=== PATIENT | female | born 1950 | race Caucasian/White ===

== ENCOUNTER 2017-05-27 12:03 | Emergency (ER) | payer MEDICARE, SELFPAY ==
[~2017-05-27] VITALS: Ht 167.6 cm; Wt 141.1 kg
[~2017-05-27 12:03] MED LIST: ALBU90OI INH; CHOL10002; CHOL10002 PO; COMPOUND THYROID; CYCL10 PO; Digestive Enzy1 EACH PO; IBUP400 PO; IBUP800; LISI5 PO; Percocet 5-3251 EACH PO; T3/T4 PO; TRAM50 PO; [UNRECOGNIZED DRUG - OTHER] PO
[2017-05-27 12:38] LABS: BASOPHILS ABSOLUTE AUTO 0.06 K/mm3 (0.00-0.23); BASOPHILS PERCENT AUTO 0 % (0-2); EOSINOPHILS ABSOLUTE AUTO 0.17 K/mm3 (0.00-0.68); EOSINOPHILS PERCENT AUTO 1 % (0-6); Hematocrit 43.6 % (33.0-51.0); IMMATURE GRAN ABSOLUTE AUTO 0.07 K/mm3 (0.00-0.10); IMMATURE GRAN PERCENT AUTO 1 % (0-1); LYMPHOCYTES ABSOLUTE AUTO 1.75 K/mm3 (0.84-5.20); LYMPHOCYTES PERCENT AUTO 11 % (21-46); MONOCYTES PERCENT AUTO 5 % (4-13); Mean Corpuscular HGB 27.8 pg (26.0-34.0); Mean Corpuscular HGB Conc 32.1 g/dL (31.5-36.5); Mean Corpuscular Volume 87 fL (80-100); Mean Platelet Volume 10.1 fL (9.1-12.4); NEUTROPHILS ABSOLUTE AUTO 12.59 K/mm3 (1.96-9.15); NEUTROPHILS PERCENT AUTO 82 % (41-73); Platelet Count 281 K/mm3 (150-400); RDW Standard Deviation 53.7 fL (35.1-46.3); Red Blood Cell Count 5.04 M/mm3 (3.80-5.20); White Blood Cell Count 15.34 K/mm3 (4.00-11.30)
[2017-05-27 12:53] LABS: Alanine Aminotransfer (ALT/SGP 31 U/L (12-78); Albumin, Blood 3.5 g/dL (3.4-5.0); Albumin/Globulin Ratio 0.8 (0.8-1.8); Alk Phos 102 U/L (50-136); Anion Gap 8 mmol/L (6-16); Aspartate Aminotrans (AST/SGOT 22 U/L (12-37); Bilirubin, Total 0.5 mg/dL (0.1-1.0); Blood Urea Nitrogen 12 mg/dL (8-24); Bun/Creatinine Ratio 19.2 (12.0-20.0); CO2, Blood 25 mmol/L (21-32); Calcium, Blood 8.8 mg/dL (8.5-10.1); Chloride, Blood 105 mmol/L (98-108); Creatinine, Blood 0.63 mg/dL (0.40-1.00); Globulin, Blood 4.4 g/dL (2.2-4.0); Glomerular Filtration Rate >60 (60-); Glucose, Blood 103 mg/dL (70-99); Potassium, Blood 4.3 mmol/L (3.5-5.5); Sodium, Blood 138 mmol/L (136-145); Total Protein, Blood 7.9 g/dL (6.4-8.2); Troponin I <0.015 ng/mL (0.000-0.040)
[2017-05-27 13:31] LABS: Source, Urine Clean Catch
[2017-05-27 13:37] LABS: Bilirubin, Urine Neg (Neg); Blood, Urine Neg (Neg); Glucose Qualitative, Urine Neg (Neg); Ketones, Urine Neg (Neg); Leukocyte Esterase, Urine Neg (Neg); Nitrite, Urine Neg (Neg); Protein, Urine Neg (Neg); Specific Gravity, Urine 1.015 (1.003-1.022); Urobilinogen, Urine NORM (Normal)
[2017-05-27 13:44] LABS: Appearance, Urine Clear (Clear); Color, Urine Pale Yellow (P-Yellow)
== END 2017-05-27 14:20 | disposition home or self-care (01) ==
LOC: ER 12:03
PROVIDERS: Emergency Medicine
DX: R07.9 Chest pain, unspecified (principal); Z88.2 Allergy status to sulfonamides; Z88.5 Allergy status to narcotic agent; Z79.899 Other long term (current) drug therapy
CPT/HCPCS: 36415; 71046; 80053; 81003; 83690; 83880; 84484; 85025; 93005; 93010; 99283

== ENCOUNTER 2019-04-28 10:27 | Day surgery (SDC) | payer MEDICARE, SELFPAY ==
[~2019-04-28] VITALS: Ht 165.1 cm; Wt 148.0 kg
[~2019-04-28 10:27] MED LIST changes: +SYNTHROID150 MCG PO
--- NOTE | 2019-04-28 11:20 | NUR ---
History, Chart, Medications and Allergies reviewed before start of procedure. Patient confirms NPO status and agrees with scheduled surgery. Reports taking all of the prescribed colon prep with clear results. Patient States Post-Procedure ride home has been arranged with her friend, [place].
--- NOTE | 2019-04-28 11:54 | NUR ---
Ambulatory in Day Surgery. Patient states colon prep results clear. History, Chart, Medications and Allergies reviewed before start of procedure. Lungs clear T/O to Auscultation. Patient confirms NPO status and agrees with scheduled surgery. Pre-Op teaching done. Pt verbalizes understanding. Patient States Post-Procedure ride home has been arranged.
--- NOTE | 2019-04-28 15:14 | NUR ---
04/28/19 1514 Brianna Chase History, Chart, Medications and Allergies reviewed before start of procedure.MAC CASE WITH DR. MILLER.
--- NOTE | 2019-04-28 16:20 | NUR ---
Discharge instructions reviewed with patient. Patient verbalizes understanding. Copy given to patient to take home. Discharged via wheelchair to private car for ride home.PATIENT AND RIDE HOME DENY ANY QUESTIONS OR CONCERNS
== END 2019-04-28 22:52 | disposition home or self-care (01) ==
LOC: ORSCMMR 10:27 → ORD 12:00 → ORSCMMR 22:52
PROVIDERS: Surgery
PROC: 0DBP8ZX Excision of Rectum, Via Natural or Artificial Opening Endoscopic, Diagnostic (ICD-10-PCS; principal; 2019-04-28 12:00)
DX: Z85.038 Personal history of other malignant neoplasm of large intestine (principal); K62.1 Rectal polyp; K57.30 Diverticulosis of large intestine without perforation or abscess without bleeding; E03.9 Hypothyroidism, unspecified; E78.5 Hyperlipidemia, unspecified; J45.909 Unspecified asthma, uncomplicated; E66.01 Morbid (severe) obesity due to excess calories; Z68.43 Body mass index [BMI] 50.0-59.9, adult; G47.33 Obstructive sleep apnea (adult) (pediatric); I10 Essential (primary) hypertension; Z79.899 Other long term (current) drug therapy
CPT/HCPCS: 88305; J2704; J7120

== ENCOUNTER 2019-05-02 08:21 | Day surgery (SDC) | payer MEDICARE, SELFPAY | END 2019-05-02 23:25 | disposition home or self-care (01) | LOC: MOI US 08:21 | DX: C79.81 Secondary malignant neoplasm of breast (principal); C18.7 Malignant neoplasm of sigmoid colon; Z17.0 Estrogen receptor positive status [ER+] | CPT/HCPCS: 19083; 19084; 77065; 88305; 88341; 88342; 88360; A4648 ==

== ENCOUNTER 2019-05-14 08:18 | Day surgery (SDC) | payer MEDICARE, SELFPAY | END 2019-05-14 22:46 | disposition home or self-care (01) | LOC: MOI MAM 08:18 → MOI US 09:00 → MOI MAM 22:46 → MOI US 05-19 09:00 | DX: C50.412 Malignant neoplasm of upper-outer quadrant of left female breast (principal) | CPT/HCPCS: 19281; 19282 ==

== ENCOUNTER 2021-11-14 08:13 | Day surgery (SDC) | payer MEDICARE | END 2021-11-18 23:36 | disposition home or self-care (01) | LOC: MOI US 08:13 | DX: C50.412 Malignant neoplasm of upper-outer quadrant of left female breast (principal); Z17.0 Estrogen receptor positive status [ER+] | CPT/HCPCS: 19083; 77065; 88305; 88360; A4648; G0279 ==

== ENCOUNTER 2022-02-13 07:17 | Day surgery (SDC) | payer MEDICARE ==
[~2022-02-13] VITALS: Ht 167.6 cm; Wt 142.0 kg
[~2022-02-13 07:17] MED LIST changes: +METF500 PO
--- NOTE | 2022-02-13 09:06 | NUR ---
Ambulatory in Day Surgery. History, Chart, Medications and Allergies reviewed before start of procedure.Patient confirms NPO status and agrees with scheduled surgery. Pre-Op teaching done. Pt verbalizes understanding. Patient States Post-Procedure ride home has been arranged.
--- NOTE | 2022-02-13 10:06 | NUR ---
02/13/22 Sheeba6 Rusty Calhoun ADDITIONAL 1 G ANCEF GIVEN BY GRABIEL.HEYDI AT 0931 IN ADJUNCT TO 2G OF ANCEF FOR A TOTAL OF 3G OF ANCEF. TX.CS1 UTILIZED SILK TAPE TO POSITION BILATERAL BREASTS OUT OF SURGICAL SITE.
== END 2022-02-13 23:21 | disposition home or self-care (01) ==
LOC: ORSCMMR 07:17 → ORD 08:45 → ORSCMMR 08:45
PROVIDERS: Surgery
PROC: 05HM33Z Insertion of Infusion Device into Right Internal Jugular Vein, Percutaneous Approach (ICD-10-PCS; principal; 2022-02-13 08:45)
DX: C78.7 Secondary malignant neoplasm of liver and intrahepatic bile duct (principal); E78.5 Hyperlipidemia, unspecified; E03.9 Hypothyroidism, unspecified; E11.9 Type 2 diabetes mellitus without complications; G47.33 Obstructive sleep apnea (adult) (pediatric); E66.01 Morbid (severe) obesity due to excess calories; Z68.43 Body mass index [BMI] 50.0-59.9, adult; Z79.84 Long term (current) use of oral hypoglycemic drugs; Z79.899 Other long term (current) drug therapy
CPT/HCPCS: 77001; 82947; 93005; 93010; A9270; C1788; J0690; J1100; J1642; J2250; J2405; J2704; J2765; J2795; J3010; J7120

== ENCOUNTER 2023-02-12 07:30 | Day surgery (SDC) | payer BC, OTHER ==
[2023-02-12] VITALS (18 sets, daily range): BP systolic 120–178; BP diastolic 84–108
[~2023-02-12] VITALS: Ht 165 cm; Wt 128.2 kg
--- NOTE | 2023-02-12 08:48 | NUR ---
Ambulatory in Day Surgery. History, Chart, Medications and Allergies reviewed before start of procedure. Patient confirms NPO status and agrees with scheduled surgery. Surgical site prepped with 2% Chlorhexidine cloth wipe. Patient reports completing Chlorhexadine shower X2 prior to admission to hospital. Pre-Op teaching done. Pt verbalizes understanding. Patient States Post-Procedure ride home has been arranged.
--- NOTE | 2023-02-12 15:26 | NUR ---
DISCHARGE: Patient up to Ambulate independently. Gait steady. Discharge instructions reviewed with patient. Patient verbalizes understanding. Copy given to patient to take home. Patient States Post-Procedure ride home has been arranged. Discharged via wheelchair to private car for ride home. PT SURGICAL SITES WNL. BREAST BINDER IN PLACE. GAUZE PLACED TO BREAST TO PREVENT SURGICAL SITE FROM STICKING TO BREAST BINDER. PT REPORTS NAUSEA AND PAIN BETTER AND REPORTS SHE IS READY TO GO HOME NOW. PT REPORTS FEELING MUCH BETTER AFTER BEING ABLE TO SLEEP FOR A LITTLE BIT. PT GIVEN GLASSES.
== END 2023-02-12 15:26 | disposition home or self-care (01) ==
LOC: ORSCMMR 07:30 → ORD 09:00 → ORSCMMR 09:00
PROVIDERS: Surgery
PROC: 0HBU0ZZ Excision of Left Breast, Open Approach (ICD-10-PCS; principal; 2023-02-12 09:00)
PROC: 07B60ZX Excision of Left Axillary Lymphatic, Open Approach, Diagnostic (ICD-10-PCS; principal; 2023-02-12 09:00)
PROC: 0JPT0WZ Removal of Totally Implantable Vascular Access Device from Trunk Subcutaneous Tissue and Fascia, Open Approach (ICD-10-PCS; principal; 2023-02-12 09:00)
DX: C50.912 Malignant neoplasm of unspecified site of left female breast (principal); Z17.0 Estrogen receptor positive status [ER+]; E11.9 Type 2 diabetes mellitus without complications; E03.9 Hypothyroidism, unspecified; G47.33 Obstructive sleep apnea (adult) (pediatric); J45.909 Unspecified asthma, uncomplicated; Z79.84 Long term (current) use of oral hypoglycemic drugs; E66.01 Morbid (severe) obesity due to excess calories; Z68.42 Body mass index [BMI] 45.0-49.9, adult; Z85.038 Personal history of other malignant neoplasm of large intestine; Z85.05 Personal history of malignant neoplasm of liver; C77.3 Secondary and unspecified malignant neoplasm of axilla and upper limb lymph nodes
CPT/HCPCS: 82947; 88307; 88360; A9270; J0690; J1100; J1885; J2250; J2405; J2704; J2765; J3010; J7120; Q9968

== ENCOUNTER 2023-04-28 23:45 | Emergency (ER) | payer BC, OTHER ==
[~2023-04-28] VITALS: Ht 165.1 cm; Wt 131.5 kg
[2023-04-29 00:28] LABS: BASOPHILS ABSOLUTE AUTO 0.06 K/mm3 (0.00-0.23); BASOPHILS PERCENT AUTO 0 % (0-2); EOSINOPHILS ABSOLUTE AUTO 0.01 K/mm3 (0.00-0.68); EOSINOPHILS PERCENT AUTO 0 % (0-6); IMMATURE GRAN ABSOLUTE AUTO 0.09 K/mm3 (0.00-0.10); IMMATURE GRAN PERCENT AUTO 1 % (0-1); LYMPHOCYTES ABSOLUTE AUTO 1.97 K/mm3 (0.84-5.20); LYMPHOCYTES PERCENT AUTO 11 % (21-46); MONOCYTES ABSOLUTE AUTO 0.63 K/mm3 (0.16-1.47); MONOCYTES PERCENT AUTO 4 % (4-13); Mean Corpuscular HGB 30.1 pg (26.0-34.0); Mean Corpuscular Volume 88 fL (80-100); Mean Platelet Volume 9.3 fL (9.1-12.4); NEUTROPHILS ABSOLUTE AUTO 15.23 K/mm3 (1.96-9.15); NEUTROPHILS PERCENT AUTO 85 % (41-73); Platelet Count 307 K/mm3 (150-400); RDW Coefficient Variation 14.6 % (11.7-14.2); RDW Standard Deviation 46.7 fL (35.1-46.3); Red Blood Cell Count 5.32 M/mm3 (3.80-5.20); White Blood Cell Count 17.99 K/mm3 (4.00-11.30)
[2023-04-29 01:04] LABS: Albumin, Blood 4.1 g/dL (3.4-5.0); Albumin/Globulin Ratio 0.9 (0.8-1.8); Bilirubin, Total 0.7 mg/dL (0.1-1.0); Bun/Creatinine Ratio 24.7 (12.0-20.0); Calcium, Blood 9.9 mg/dL (8.5-10.1); Creatinine, Blood 0.77 mg/dL (0.40-1.00); Globulin, Blood 4.5 g/dL (2.2-4.0); Potassium, Blood 4.6 mmol/L (3.5-5.5); Total Protein, Blood 8.6 g/dL (6.4-8.2)
[2023-04-29 07:45] VITALS: BP 143/87
== END 2023-04-29 08:34 | disposition home or self-care (01) ==
LOC: ER 23:45
PROVIDERS: Emergency Medicine
DX: K43.6 Other and unspecified ventral hernia with obstruction, without gangrene (principal); Z88.2 Allergy status to sulfonamides; Z88.5 Allergy status to narcotic agent; Z79.899 Other long term (current) drug therapy; M19.90 Unspecified osteoarthritis, unspecified site; E03.9 Hypothyroidism, unspecified
CPT/HCPCS: 74018; 74177; 80053; 83605; 83690; 84484; 85025; 93005; 93010; 96361; 96374; 96375; 96376; 99291-25; J0153; J1170; J1790; J2405; J3010; J7030; Q9967